=== PATIENT | female | born 1985 | race African-American/Black ===

== ENCOUNTER 2019-06-05 09:05 | Day surgery (SDC) | payer MEDICAID, OTHER ==
[~2019-06-05] VITALS: Ht 170.2 cm; Wt 103.0 kg
[2019-06-05] MEDS ORDERED: SODIUM CHLORIDE 0.9% 1,000 ML IV ONE (10:08)
[2019-06-05 10:47] LABS: BASOPHILS % 0.6 % (0.0-2.0); EOSINOPHILS % 2.2 % (0.0-5.0); HEMATOCRIT. 37.2 % (36.0-48.0); HEMOGLOBIN. 12.9 g/dL (12.0-16.0); LYMPHOCYTES % 23.7 % (20.0-50.0); MEAN CORPUSCULAR HEMOGLOBIN 29.9 pg (28.0-32.0); MEAN CORPUSCULAR VOLUME 85.9 fL (81.0-99.0); MEAN PLATELET VOLUME 8.6 fl (7.4-10.4); MONOCYTES % 7.2 % (2.0-8.0); NEUTROPHILS % 66.3 % (40.0-76.0); PLATELET 237 x1000/uL (130-400); RED BLOOD CELL COUNT 4.32 mill/uL (4.2-5.4); RED CELL DISTRIBUTION WIDTH 14.2 % (11.6-14.6)
[2019-06-05 10:55] LABS: CHLORIDE 110 mEq/L (98-107); INR 0.9; PROTHROMBIN TIME 9.5 sec (9.6-11.0)
[2019-06-05 11:03] LABS: HCG SCREEN POSITIVE
[2019-06-05 11:19] LABS: B-HCG QUANTITATIVE 7554 mIU/mL (<3)
[2019-06-05] MEDS ORDERED: LIDOCAINE HCL/PF 1% 10 MG/ML 5ML VIAL ONE (14:54)
[2019-06-05] MEDS ORDERED: MIDAZOLAM HCL 2 MG/2 ML VIAL ONE ×2 (14:54→15:42)
[2019-06-05] MEDS ORDERED: PROPOFOL 200MG/20ML VIAL IV ONE (14:54)
[2019-06-05] MEDS ORDERED: FENTANYL CITRATE/PF 50MCG/ML 2ML VIAL ONE (14:54)
[2019-06-05] MEDS ORDERED: SUCCINYLCHOLINE CHLORIDE 200MG/10ML IV ONE (15:08)
[2019-06-05] MEDS ORDERED: METOCLOPRAMIDE HCL 10MG/2ML VIAL ONE (15:28)
[2019-06-05] MEDS ORDERED: ONDANSETRON HCL 4MG/2ML INJ ONE (15:28)
[2019-06-05] MEDS ORDERED: DEXAMETHASONE 4MG/ML 1ML VIAL ONE (15:28)
[2019-06-05] MEDS ORDERED: METHYLERGONOVINE MALEATE 0.2 MG/ML ONE (15:39)
[2019-06-05] MEDS ORDERED: ONDANSETRON HCL 4MG/2ML INJ IV PRN ×2 (16:00)
[2019-06-05] MEDS ORDERED: HYDROMORPHONE HCL/PF 2MG/ML CPJ IV PRN (16:00)
[2019-06-05] MEDS ORDERED: DIPHENHYDRAMINE 50MG/ML VIAL IV NR (16:00)
[2019-06-05] MEDS ORDERED: KETOROLAC 60MG/2ML VIAL IM NR (16:00)
[2019-06-05] MEDS ORDERED: FENTANYL CITRATE/PF 50MCG/ML 2ML VIAL IV PRN (16:00)
[2019-06-05 17:30] VITALS: BP 115/80
== END 2019-06-05 18:00 | disposition home or self-care (01) ==
LOC: ER 09:05 → EDBEDREQ 12:48 → OR 15:00 → ER 16:02 → OR 18:00 → CANBEDREQ 06-06 00:48
PROVIDERS: ATTEND Specialist
DX: O02.0 Blighted ovum and nonhydatidiform mole (principal); F12.10 Cannabis abuse, uncomplicated; F17.210 Nicotine dependence, cigarettes, uncomplicated; E66.3 Overweight; Z88.8 Allergy status to other drugs, medicaments and biological substances; Z68.35 Body mass index [BMI] 35.0-35.9, adult; Z88.0 Allergy status to penicillin; Z88.1 Allergy status to other antibiotic agents; Z88.6 Allergy status to analgesic agent; Z98.890 Other specified postprocedural states
CPT/HCPCS: 36415; 59812; 76801; 76817; 80048; 84702; 84703; 85025; 85610; 86850; 86900; 86901; 88305; 96372; 96374; 99284; J0330; J1100; J1200; J1885; J2210; J2250; J2405; J2704; J2765; J3010; J3490; J7030; 86920